=== PATIENT | male | born 1995 | race American Indian/Alaskan Native ===

== ENCOUNTER 2016-11-13 07:48 | Emergency (ER) | payer SELFPAY ==
[2016-11-13 07:55] VITALS: BP 119/83
--- NOTE | 2016-11-13 08:32 | Emergency Department Report ---
Chief Complaint: Dental/Oral Stated Complaint: TOOTHACHE Time Seen by Provider: 11/13/16 08:18 - HPI History of Present Illness: 21-year-old male presents today with pain in his left lower molar 3 days. Tried Orajel and ibuprofen without relief. Denies drainage or bleeding. Denies fevers, chills, nausea, vomiting, chest pain, shortness of breath, abdominal pain. Denies history of similar symptoms or dental problems. - ROS Review of Systems: Per HPI - Exam Vital Signs: Vital Signs 11/13/16 11/13/16 07:53 07:54 Temperature 98.7 F 98.7 F Pulse Rate 65 65 Respiratory 16 16 Rate Blood Pressure 119/83 Blood Pressure 119/83 [Right] O2 Sat by Pulse 100 100 Oximetry Physical Exam: General: 21-year-old male in no acute distress. Well-developed, well-nourished. Dental: Tenderness to palpation of tooth #17. No abscess or drainage noted. No dental caries noted. CV: Regular rate and rhythm. No murmurs rubs or gallops. Lungs: Clear to auscultation bilaterally. Abdomen: No tenderness to palpation. Nondistended. No guarding or rebound tenderness. Mini Neuro: Alert and oriented 3. GCS at 15. MSE screening note: Focused history and physical exam performed. Due to findings the following was ordered: ED Disposition for MSE Disposition: MEDICAL SCREENING EXAM-LEFT Condition: Stable Referrals: PRIMARY CARE, [Primary Care Provider] - 3-5 Days
== END 2016-11-13 08:30 | disposition left against medical advice (07) ==
LOC: ED 07:48
DX: K08.89 Other specified disorders of teeth and supporting structures (principal); Z53.21 Procedure and treatment not carried out due to patient leaving prior to being seen by health care provider